=== PATIENT | female | born 1985 | race Caucasian/White ===

== ENCOUNTER 2022-10-08 19:50 | Inpatient (IN) | payer BC ==
[2022-10-08 20:52] VITALS: BMI 24.3
[2022-10-08 21:15] LABS: BASO % 0.4 % (0-2.0); EOS % 1.2 % (0-4.5); HEMATOCRIT 30.4 % (32.4-45.2); HEMOGLOBIN 10.6 GM/dL (10.7-15.3); LYMPH % 23.2 % (8-40); MEAN CELL VOLUME 85.7 fl (80-96); MEAN PLT VOLUME 9.1 fl (7.5-11.1); NEUT % 69.2 % (42.8-82.8); PLATELET COUNT 181 10^3/uL (134-434); RBC 3.54 M/mm3 (3.60-5.2); RDW 13.9 % (11.6-15.6); WHITE BLOOD COUNT 5.7 K/mm3 (4.0-10.0)
[2022-10-08 21:23] LABS: INR 1.04 (0.83-1.09); PROTHROMBIN TIME (PATIENT) 12.1 SEC (9.7-13.0)
[2022-10-08 21:26] LABS: ACTIVATED PTT 23.5 SECONDS (25.2-36.5)
[2022-10-08] MEDS ORDERED: SODIUM CHLORIDE 500 ML IV STA (21:28)
[2022-10-08 21:32] LABS: CALCIUM 8.3 mg/dL (8.5-10.1)
[2022-10-08 21:36] LABS: CREATININE 0.8 mg/dL (0.55-1.3)
[2022-10-08] MEDS: DEXTROSE 5%-LACTATED RINGERS 1,000 ML IV SCH (22:20)
[2022-10-08] MEDS: MISOPROSTOL 100 MCG TABLET NR SCH (22:50)
[2022-10-09] MEDS: MISOPROSTOL 100 MCG TABLET NR SCH ×2 (02:55→16:04)
[2022-10-09] MEDS: DEXTROSE 5%-LACTATED RINGERS 1,000 ML IV SCH (06:00)
[2022-10-09] MEDS ORDERED: PENICILLIN G POTASSIUM 20,000,000 (20Mm) UNITS VIAL IVPB ONE (06:12)
[2022-10-09] MEDS ORDERED: morphine CARPU-JECT 8 MG/1 ML DISP.SYRIN IVPB ONE (08:01)
[2022-10-09] MEDS ORDERED: morphine SULFATE 4 MG/ML VIAL IVPB ONE (08:01)
[2022-10-09] MEDS ORDERED: morphine SULFATE 4 MG/ML VIAL ONE (08:05)
[2022-10-09] MEDS ORDERED: FENTANYL/BUPIVACAINE/NS/PF - PCEA - 50 ML DISP.SYRIN EP ONE (09:01)
[2022-10-09] MEDS ORDERED: BUPIVACAINE HCL/PF 0.25% (2.5MG/ML) 10 ML VIAL ONE (09:04)
[2022-10-09] MEDS ORDERED: NALOXONE HCL 0.4 MG/ML VIAL IVPUSH PRN (09:37)
[2022-10-09] MEDS ORDERED: FENTANYL/BUPIVACAINE/NS/PF - PCEA - 50 ML DISP.SYRIN EP SCH (09:45)
[2022-10-09] MEDS ORDERED: OXYTOCIN 20 UNITS in 0.9% NS 20 UNIT/1,000 ML INFUS.BAG IV ONE ×2 (10:07→12:03)
[2022-10-09] MEDS ORDERED: PENICILLIN G POTASSIUM 20,000,000 (20Mm) UNITS VIAL IVPB SCH (10:15)
[2022-10-09] MEDS: OXYTOCIN 20 UNITS in 0.9% NS 20 UNIT/1,000 ML INFUS.BAG IV SCH ×2 (10:27→12:00)
[2022-10-09] MEDS ORDERED: PENICILLIN G POTASSIUM 2,500,000 UNIT in SODIUM CHLORIDE 100 ML IVPB SCH (11:00)
[2022-10-09] MEDS ORDERED: ACETAMINOPHEN 325 MG TABLET (FP) PO PRN (11:01)
[2022-10-09] MEDS ORDERED: WITCH HAZEL 50% (TUCKS) 40 PAD/JAR PAD TP PRN (11:01)
[2022-10-09] MEDS ORDERED: BENZOCAINE 20% 57 GM BOTTLE TP PRN (11:01)
[2022-10-09] MEDS ORDERED: BENZOCAINE 28 GM HEMORRHOIDAL OINTMENT TP PRN (11:01)
[2022-10-09] MEDS ORDERED: SODIUM CHLORIDE 1,000 ML IV STA (11:01)
[2022-10-09 11:51] LABS: CORD BASE EXCESS -7.1 mmol/L (0-2); CORD HCO3 20.5 mmHg (20-29); CORD pH 7.248 (7.14-7.44)
[2022-10-09 11:57] LABS: CORD HCO3 22.1 mmHg (20-29); CORD PCO2 69.5 mmHg (30-78)
[2022-10-09] MEDS: FERROUS SO4 325 MG TABLET (FP) PO SCH ×2 (12:34→17:42)
[2022-10-09] MEDS: IBUPROFEN 600 MG TABLET (FP) PO PRN ×2 (13:22→20:00)
[2022-10-09] MEDS: ACETAMINOPHEN 325 MG TABLET (FP) PO PRN (18:20)
[2022-10-10] MEDS: IBUPROFEN 600 MG TABLET (FP) PO PRN ×4 (00:03→17:43)
[2022-10-10] MEDS: ACETAMINOPHEN 325 MG TABLET (FP) PO PRN (03:53)
[2022-10-10] MEDS: DEXTROSE 5%-LACTATED RINGERS 1,000 ML IV SCH (03:56)
[2022-10-10 06:00] VITALS: TEMP 97.5
[2022-10-10 08:30] LABS: BASO % 0.5 % (0-2.0); HEMATOCRIT 30.8 % (32.4-45.2); HEMOGLOBIN 10.6 GM/dL (10.7-15.3); MCH 29.9 pg (25.7-33.7); MCHC 34.4 g/dl (32.0-36.0); MEAN PLT VOLUME 8.9 fl (7.5-11.1); MONO % 4.9 % (3.8-10.2); NEUT % 72.6 % (42.8-82.8); PLATELET COUNT 152 10^3/uL (134-434); RBC 3.55 M/mm3 (3.60-5.2); RDW 13.6 % (11.6-15.6); WHITE BLOOD COUNT 8.1 K/mm3 (4.0-10.0)
[2022-10-10] MEDS: FERROUS SO4 325 MG TABLET (FP) PO SCH ×3 (08:57→17:43)
[2022-10-10 09:52] VITALS: BP 111/72; PULSE 48; RESP 18
[2022-10-10] MEDS ORDERED: PRENATAL VITAMINS W/ FOLIC ACID TABLET (FP) PO SCH (10:00)
[2022-10-10] MEDS ORDERED: PNEUMOC 20-VAL CONJ-DIP CRM/PF 0.5 ML SYRINGE IM ONE (10:00)
[2022-10-10] MEDS ORDERED: SENNOSIDES/DOCUSATE COMBO (SENNA PLUS) TABLET (UD) PO PRN (22:00)
== END 2022-10-10 18:20 | disposition home or self-care (01) | DRG 807 ==
LOC: JLDR 19:50 → J3W 10-09 12:20
PROVIDERS: ADMIT Obstetrics & Gynecology Maternal & Fetal Medicine; ATTEND Obstetrics & Gynecology Maternal & Fetal Medicine
PROC: 3E0P7VZ Introduction of Hormone into Female Reproductive, Via Natural or Artificial Opening (ICD-10-PCS; 2022-10-08)
PROC: 10E0XZZ Delivery of Products of Conception, External Approach (ICD-10-PCS; principal; 2022-10-09)
DX: O24.420 Gestational diabetes mellitus in childbirth, diet controlled (principal); Z37.0 Single live birth; O69.81X0 Labor and delivery complicated by cord around neck, without compression, not applicable or unspecified; O99.344 Other mental disorders complicating childbirth; F39 Unspecified mood [affective] disorder; Z3A.38 38 weeks gestation of pregnancy
CPT/HCPCS: 36415; 36600; 59409; 80048; 82803; 85025; 85610; 85730; 86780; 86850; 86900; 86901; 90677; 93005; 93010; C9803-CS; U0003; U0005